=== PATIENT | female | born 1995 | race Caucasian/White ===

== ENCOUNTER 2020-02-02 08:19 | Outpatient (REF) | payer OTHER, SELFPAY ==
[2020-02-02 08:37] LABS: COVID-19 Test Negative (Negative)
== END 2020-02-02 08:20 | disposition home or self-care (01) ==
LOC: HO.LAB 08:19
PROVIDERS: Visit Provider Internal Medicine
DX: Z20.828 Contact with and (suspected) exposure to other viral communicable diseases (principal)
CPT/HCPCS: 87635

== ENCOUNTER 2020-06-09 09:40 | Outpatient (REF) | payer OTHER, SELFPAY ==
[2020-06-09 09:56] LABS: COVID-19 Test Negative (Negative)
== END 2020-06-09 09:41 | disposition home or self-care (01) ==
LOC: HO.EMPCOV 09:40
PROVIDERS: Visit Provider Internal Medicine
DX: Z20.822 Contact with and (suspected) exposure to COVID-19 (principal)
CPT/HCPCS: 36415; 87635; C9803

== ENCOUNTER 2020-06-11 08:16 | Outpatient (REF) | payer OTHER, SELFPAY ==
[2020-06-11 09:59] LABS: COVID-19 Test Positive (Negative)
== END 2020-06-11 08:17 | disposition home or self-care (01) ==
LOC: HO.EMPCOV 08:16
PROVIDERS: Visit Provider Internal Medicine
DX: Z20.822 Contact with and (suspected) exposure to COVID-19 (principal)
CPT/HCPCS: 36415; 87635

== ENCOUNTER 2021-08-22 06:15 | Outpatient (REF) | payer OTHER, SELFPAY ==
[2021-08-22 06:59] LABS: MANUAL DIFF FLAG NO
[2021-08-22 07:43] LABS: Basophils Percent Auto 0.8 % (0-2); Eosinophils Absolute Auto 0.3 X10*3/uL (0.0-0.4); Eosinophils Percent Auto 5.7 % (0-4); Hematocrit 45.8 % (37.0-47.0); Hemoglobin 15.4 g/dl (12.0-16.0); Imm Gran Abs Auto 0.01 X10*3/uL (0.00-0.03); Imm Gran Pct Auto 0.2 % (0.0-0.4); Lymphocytes Absolute Auto 1.9 X10*3/uL (1.2-4.9); Lymphocytes Percent Auto 36.9 % (20-40); Mean Corpuscular HGB Conc 33.6 g/dl (31.0-35.0); Mean Corpuscular Hemoglobin 29.1 pg (27.0-33.0); Mean Corpuscular Volume 86.4 fL (80.0-98.0); Mean Platelet Volume 10.5 fL (9.4-12.3); Monocytes Absolute Auto 0.4 X10*3/uL (0.1-1.2); Monocytes Percent Auto 6.7 % (2-11); Neutrophils Absolute Auto 2.6 x10*3/uL (2.0-8.3); Neutrophils Percent Auto 49.7 % (45-73); Platelet Count 239 X10*3/uL (160-400); Red Cell Distribution Width 12.8 % (11.0-16.0); White Blood Count 5.2 X10*3/uL (4.8-10.8)
[2021-08-22 08:23] LABS: Alanine Aminotransferase 19 U/L (0-31); Albumin Level 4.3 g/dL (3.5-5.0); Alkaline Phosphatase 91 U/L (39-117); Anion Gap 12 (12-20); Aspartate Amino Transferase 25 U/L (5-31); Bilirubin Total 0.5 mg/dL (0.0-1.0); Blood Urea Nitrogen 8 mg/dL (9-16); Calcium 9.8 mg/dL (8.4-10.2); Carbon Dioxide 25 mmol/L (22-29); Chloride 106 mmol/L (96-108); Cholesterol 145 mg/dL; Estimated Glomerular Filt Rate > 60; Glucose Random 88 mg/dL (60-115); HDL Cholesterol 60 mg/dL; LDL Cholesterol Calculated 72 mg/dl; Potassium 4.4 mmol/L (3.3-5.1); Sodium 139 mmol/L (135-145); Total Protein 7.4 g/dL (6.5-8.0); Triglycerides 68 mg/dL
[2021-08-22 08:31] LABS: HCG Quantitative < 2 mIU/mL; Insulin 9 uU/mL (2-29); Thyroid Stimulating Hormone 1.44 uIU/mL (0.32-4.0)
[2021-08-24 06:16] LABS: Triiodothyronine T3 Free 3.7 pg/mL (2.3-4.2)
[2021-08-24 07:36] LABS: DHEA Sulfate 88 mcg/dL (14-349); Follicle Stimulating Hormone 7.3 mIU/mL; Lutenizing Hormone 12.5 mIU/mL; Prolactin 7.7 ng/mL
[2021-08-30 13:35] LABS: Testosterone, Total 76 ng/dL (2-45)
[2021-08-31 22:14] LABS: Estradiol Free 1.17 pg/mL; Estradiol, Ultrasensitive 63 pg/mL
== END 2021-08-22 06:16 | disposition home or self-care (01) ==
LOC: HO.LAB 06:15
PROVIDERS: Visit Provider Midwife
DX: Z00.00 Encounter for general adult medical examination without abnormal findings (principal); N91.2 Amenorrhea, unspecified; L70.9 Acne, unspecified
CPT/HCPCS: 36415; 80053; 80061; 82533; 82627; 82670; 82681; 83001; 83002; 83525; 84146; 84402; 84403; 84439; 84443; 84481; 84702; 85025

== ENCOUNTER 2023-02-11 12:54 | Outpatient (REF) | payer OTHER, SELFPAY ==
--- NOTE | ~2023-02-11 | US_ITS ---
EXAMINATION: US DIAGNOSTIC ULTRASOUND BREAST, LEFT CLINICAL INFORMATION: Patient states quarter-sized palpable focus 2:00 axis left breast x2 months. COMPARISON: None available. TECHNIQUE: Ultrasound of the breast is performed with real-time pereira scale imaging and color Doppler. FINDINGS: There is no focal suspicious finding. Near the focus of palpable concern is a tiny oval circumscribed 4 x 2 x 4 cm mass or complicated cyst with no internal flow, and no definite posterior features. This does not appear to represent with the patient is feeling, and is likely a benign small fibroadenoma or complicated cyst. Patient appears to be feeling a prominent lobule or ridge of tissue. Results were personally discussed with the patient at time of visit. US/US breast LT limited mamm only IMPRESSION: Palpable focus at the 2:00 axis of the left breast likely relates to a prominent lobular ridge of normal breast tissue. A small 4 cm circumscribed dirty cyst versus tiny fibroadenoma is present in the left breast at the 2:00 axis, 8 cm from the nipple, probably benign. Six-month interval follow-up targeted left breast ultrasound recommended to ensure stability. ASSESSMENT: BI-RADS 3: Probably Benign RECOMMENDATION: Diagnostic sonography in 6 months.
== END 2023-02-11 12:55 | disposition home or self-care (01) ==
LOC: HO.MAMMO 12:54
PROVIDERS: Visit Provider Midwife
DX: N63.21 Unspecified lump in the left breast, upper outer quadrant (principal)
CPT/HCPCS: 76642

== ENCOUNTER → 2023-02-11 13:00 | Outpatient (BNV) | payer OTHER, SELFPAY | PROVIDERS: Visit Provider Radiology Diagnostic Radiology | DX: D24.1 Benign neoplasm of right breast (principal) | CPT/HCPCS: 76642 ==

== ENCOUNTER 2023-08-19 12:52 | Outpatient (REF) | payer OTHER, SELFPAY ==
--- NOTE | ~2023-08-19 | US_ITS ---
EXAMINATION: US DIAGNOSTIC ULTRASOUND BREAST, LEFT CLINICAL INFORMATION: Follow-up small probably benign complicated cyst versus small probably benign-appearing mass. COMPARISON: 02/11/2023 TECHNIQUE: Ultrasound of the left breast is performed with real-time pereira scale imaging and color Doppler. FINDINGS: In the 2:00 axis of the left breast, 8 cm from the nipple, there is a stable and unchanged oval circumscribed wider than tall near anechoic complicated cyst versus small mass measuring 0.4 x 0.3 x 0.4 cm (previously the same when measured using similar technique). No good through transmission is identified, and there appears to be a subtle septation within the superior margin of the abnormality. This remains a probably benign finding, and six-month follow-up targeted left breast ultrasound recommended to ensure stability. Results are provided to the patient at time of visit by the technologist. US/US breast LT limited mamm only IMPRESSION: Stable probably benign complicated cyst versus small mass measuring 4 x 3 x 4 mm in the 2:00 axis of the left breast, 8 cm from the nipple. Six-month interval targeted left breast ultrasound recommended to ensure stability. ASSESSMENT: BI-RADS 3 - Probably benign finding(s) - 6 month follow-up suggested RECOMMENDATION: 6 Month F/U .
== END 2023-08-19 12:53 | disposition home or self-care (01) ==
LOC: HO.MAMMO 12:52
PROVIDERS: PCP Midwife; Visit Provider Midwife
DX: N63.21 Unspecified lump in the left breast, upper outer quadrant (principal)
CPT/HCPCS: 76642

== ENCOUNTER → 2023-08-19 13:00 | Outpatient (BNV) | payer OTHER, SELFPAY | PROVIDERS: PCP Midwife; Visit Provider Radiology Diagnostic Radiology | DX: N63.21 Unspecified lump in the left breast, upper outer quadrant (principal) | CPT/HCPCS: 76642 ==

== ENCOUNTER 2024-03-02 12:57 | Outpatient (REF) | payer OTHER, SELFPAY ==
--- NOTE | ~2024-03-02 | US_ITS ---
EXAMINATION: US DIAGNOSTIC ULTRASOUND BREAST, LEFT CLINICAL INFORMATION: Follow-up left breast solid mass versus complicated cyst at 2:00.. COMPARISON: Comparison is made with relevant prior imaging. TECHNIQUE: Ultrasound of the breast is performed with real-time pereira scale imaging and color Doppler. FINDINGS: Targeted color Doppler ultrasound demonstrates an oval hypoechoic solid mass versus complicated cyst at 2:00 8 cm from the nipple measuring 4 x 3 mm not significantly changed from prior ultrasounds dating back for one year. Results are provided to the patient at time of visit by the technologist. US/US breast LT limited mamm only IMPRESSION: Solid mass versus complicated cyst at 2:00 8 cm from nipple not significantly changed from prior ultrasounds dating back for one year. Recommend one year follow-up left breast ultrasound to demonstrate 2 years of stability. ASSESSMENT: BI-RADS 3: Probably Benign RECOMMENDATION: Recommend diagnostic on ultrasound of the left breast in one year to demonstrate 2 years of stability. This patient's information was entered into a reminder system with a target due date for their next mammogram. Electronically signed by: Shanon Jeronimo DO 03/25/2024 10:50 AM [facility] NESBITT
== END 2024-03-02 12:58 | disposition home or self-care (01) ==
LOC: HO.MAMMO 12:57
PROVIDERS: PCP Midwife; Visit Provider Midwife
DX: R92.2 Inconclusive mammogram (principal)
CPT/HCPCS: 76642

== ENCOUNTER → 2024-03-02 13:00 | Outpatient (BNV) | payer OTHER, SELFPAY | PROVIDERS: PCP Midwife; Visit Provider Internal Medicine | DX: N63.21 Unspecified lump in the left breast, upper outer quadrant (principal) | CPT/HCPCS: 76642 ==

== ENCOUNTER 2024-05-15 07:16 | Outpatient (REF) | payer OTHER, SELFPAY ==
[2024-05-15 07:28] LABS: MANUAL DIFF FLAG NO
[2024-05-15 07:48] LABS: Basophils Percent Auto 0.8 % (0-2); Eosinophils Absolute Auto 0.2 X10*3/uL (0.0-0.4); Eosinophils Percent Auto 4.7 % (0-4); Hematocrit 45.1 % (37.0-47.0); Hemoglobin 15.6 g/dl (12.0-16.0); Imm Gran Abs Auto 0.01 X10*3/uL (0.00-0.03); Imm Gran Pct Auto 0.2 % (0.0-0.4); Lymphocytes Absolute Auto 1.6 X10*3/uL (1.2-4.9); Lymphocytes Percent Auto 33.5 % (20-40); Mean Corpuscular HGB Conc 34.6 g/dl (31.0-35.0); Mean Corpuscular Hemoglobin 30.1 pg (27.0-33.0); Mean Corpuscular Volume 86.9 fL (80.0-98.0); Mean Platelet Volume 10.1 fL (9.4-12.3); Monocytes Absolute Auto 0.3 X10*3/uL (0.1-1.2); Monocytes Percent Auto 6.8 % (2-11); Neutrophils Absolute Auto 2.6 x10*3/uL (2.0-8.3); Platelet Count 210 X10*3/uL (160-400); Red Blood Count 5.19 X10*6/uL (4.20-5.50); Red Cell Distribution Width 12.5 % (11.0-16.0); White Blood Count 4.9 X10*3/uL (4.8-10.8)
[2024-05-15 08:17] LABS: Alanine Aminotransferase 27 U/L (0-31); Albumin Level 4.2 g/dL (3.5-5.0); Alkaline Phosphatase 72 U/L (39-117); Anion Gap 11 (12-20); Aspartate Amino Transferase 27 U/L (5-31); Bilirubin Total 0.4 mg/dL (0.0-1.0); Blood Urea Nitrogen 12 mg/dL (9-16); Calcium 9.7 mg/dL (8.4-10.2); Carbon Dioxide 24 mmol/L (22-29); Chloride 111 mmol/L (96-108); Cholesterol 151 mg/dL (<200); Estimated Glomerular Filt Rate > 60; Glucose Random 88 mg/dL (60-115); HDL Cholesterol 66 mg/dL (>40); LDL Cholesterol Calculated 72 mg/dL (<100); Potassium 4.1 mmol/L (3.3-5.1); Sodium 142 mmol/L (135-145); Total Protein 7.5 g/dL (6.5-8.0); Triglycerides 67 mg/dL (<150)
[2024-05-15 08:35] LABS: TSH reflex Free T4 0.97 uIU/mL (0.32-4.0); Vitamin D 25-OH Total 46.6 ng/mL (>30)
[2024-05-15 08:42] LABS: Vitamin B12 726 pg/mL (200-900)
== END 2024-05-15 07:17 | disposition home or self-care (01) ==
LOC: HO.LAB 07:16
PROVIDERS: PCP Nurse Practitioner Primary Care; Visit Provider Nurse Practitioner Primary Care
DX: Z00.00 Encounter for general adult medical examination without abnormal findings (principal); E55.9 Vitamin D deficiency, unspecified; Z13.6 Encounter for screening for cardiovascular disorders
CPT/HCPCS: 36415; 80053; 80061; 82306; 82607; 82746; 84443; 85025

== ENCOUNTER 2025-03-03 11:08 | Outpatient (REF) | payer OTHER, SELFPAY ==
--- NOTE | ~2025-03-03 | US_ITS ---
EXAMINATION: US DIAGNOSTIC ULTRASOUND BREAST, LEFT CLINICAL INFORMATION: Two-year follow-up for probable minimally complicated cyst in the left breast at 2:00 8 cm from the nipple.. COMPARISON: Comparison is made with relevant prior imaging. TECHNIQUE: Ultrasound of the breast is performed with real-time pereira scale imaging and color Doppler. FINDINGS: Targeted color Doppler ultrasound in the left breast at 2:00 8 cm from the nipple again demonstrates a hypoechoic oval circumscribed probable minimally complicated cyst without internal vascular flow at 2:00 8 cm from nipple today measuring approximately 4 x 2 x 4 mm which is overall not significantly changed from prior ultrasounds dating back for 2 years and therefore benign. Results are discussed with the patient at time of visit. US/US Breast LT Limited Mamm Only IMPRESSION: Hypoechoic oval circumscribed minimally complicated cyst at 2:00 8 cm from nipple not significantly changed from prior ultrasounds dating back for 2 years and therefore benign. ASSESSMENT: BI-RADS 2: Benign RECOMMENDATION: Recommend clinical evaluation and followup Electronically signed by: Shanon Jeronimo DO 03/03/2025 11:46 AM [facility]
== END 2025-03-03 11:09 | disposition home or self-care (01) ==
LOC: HO.MAMMO 11:08
PROVIDERS: PCP Nurse Practitioner Primary Care; Visit Provider Midwife
DX: N63.20 Unspecified lump in the left breast, unspecified quadrant (principal)
CPT/HCPCS: 76642

== ENCOUNTER → 2025-03-03 11:30 | Outpatient (BNV) | payer OTHER, SELFPAY | PROVIDERS: PCP Nurse Practitioner Primary Care; Visit Provider Internal Medicine | DX: N60.02 Solitary cyst of left breast (principal) | CPT/HCPCS: 76642 ==